=== PATIENT | male | born 1995 | race Caucasian/White ===

== ENCOUNTER 2022-02-15 15:48 | Emergency (ER) | payer OTHER ==
[2022-02-15] MEDS ORDERED: CEPHALEXIN500 M1 PO (16:56)
== END 2022-02-15 17:46 | disposition home or self-care (01) ==
LOC: ER1 15:48
DX: S62.636A Displaced fracture of distal phalanx of right little finger, initial encounter for closed fracture (principal); Z23 Encounter for immunization; W23.0XXA Caught, crushed, jammed, or pinched between moving objects, initial encounter
CPT/HCPCS: 12001; 73130; 90471; 90714; 99283